=== PATIENT | female | born 1985 | race Caucasian/White ===

== ENCOUNTER 2018-02-24 08:30 | Emergency (ER) | payer OTHER ==
[2018-02-24 08:55] VITALS: BP 125/73
[2018-02-24] MEDS ORDERED: Ketorolac INJ* 30 MG/ML 1 ML VIAL IM ONE (09:34)
--- NOTE | 2018-02-24 09:43 | UC ---
Throat Pain/Nasal Dusty HPI - HPI Summary HPI Summary: 32 yo female with sore throat/BHATTI and bilat otalgia x 2 days no f/c no n/v/d no myalgias - History of Current Complaint Chief Complaint: UCRespiratory Stated Complaint: SORE THROAT,BILATERAL EAR PAIN Time Seen by Provider: 02/24/18 09:28 Hx Obtained From: Patient Hx Last Menstrual Period: unknown Onset/Duration: Gradual Onset Severity: Moderate Pain Intensity: 5 Pain Scale Used: 0-10 Numeric Associated Signs & Symptoms: Positive: Negative - Epiglottits Risk Factors Epiglottis Risk Factors: Negative - Allergies/Home Medications Allergies/Adverse Reactions: Allergies Allergy/AdvReac Type Severity Reaction Status Date / Time No Known Allergies Allergy Verified 05/16/16 17:11 PMH/Surg Hx/FS Hx/Imm Hx - Additional Past Medical History Additional PMH: 32 yo female sore throat/bhatti and bilateral otalgia x 2 days no f/c no n/v/d no SOB Previously Healthy: Yes - Surgical History Surgical History: None - Family History Known Family History: Positive: Hypertension - Social History Alcohol Use: Occasionally Substance Use Type: None Smoking Status (MU): Former Smoker Type: Cigarettes Amount Used/How Often: 5 smokes per day When Did the Patient Quit Smoking/Using Tobacco: 2016 Review of Systems Constitutional: Negative Skin: Negative Eyes: Negative ENT: Sore Throat, Ear Ache Respiratory: Negative Cardiovascular: Negative Gastrointestinal: Negative Genitourinary: Negative Motor: Negative Neurovascular: Negative Musculoskeletal: Negative Neurological: Negative Psychological: Negative Is Patient Immunocompromised?: No All Other Systems Reviewed And Are Negative: Yes Physical Exam Triage Information Reviewed: Yes Appearance: Well-Appearing, No Pain Distress, Well-Nourished Vital Signs: Initial Vital Signs Temp 98.3 F 02/24/18 08:49 Pulse 98 02/24/18 08:49 Resp 16 02/24/18 08:49 BP 125/73 02/24/18 08:49 Pulse Ox 100 02/24/18 08:49 Vital Signs Reviewed: Yes Eyes: Positive: Conjunctiva Clear ENT: Positive: Hearing grossly normal, TMs normal, Tonsillar swelling, Uvula midline. Negative: Nasal congestion, Nasal drainage, Tonsillar exudate, Trismus , Muffled voice, Hoarse voice, Sinus tenderness Neck: Positive: Supple, Nontender, Enlarged Nodes @ - ant cervical Respiratory: Positive: Lungs clear, Normal breath sounds, No respiratory distress, No accessory muscle use Cardiovascular: Positive: RRR, No Murmur Musculoskeletal: Positive: ROM Intact, No Edema Neurological: Positive: Alert Psychological Exam: Normal Skin Exam: Normal Diagnostics - Laboratory Diagnostic Studies Completed/Ordered: strep (-) Throat Pain/Nasal Course/Dx - Differential Dx/Diagnosis Provider Diagnoses: tonsillitis Discharge - Sign-Out/Discharge Documenting (check all that apply): Discharge - Discharge Plan Condition: Stable Disposition: HOME Prescriptions: Amoxicillin PO (*) [Amoxicillin 875 MG (*)] 875 mg PO BID #20 tab Patient Education Materials: Tonsillitis (ED) Referrals: Rja Zuleta MD [Primary Care Provider] - Additional Instructions: rest fluids tylenol or advil recheck in 3-4 days if not better - Billing Disposition and Condition Condition: STABLE Disposition: HOME
== END 2018-02-24 09:57 | disposition home or self-care (01) ==
LOC: UCCORT 08:30
DX: J03.90 Acute tonsillitis, unspecified (principal); F17.210 Nicotine dependence, cigarettes, uncomplicated
CPT/HCPCS: 87651; 99212; G0463

== ENCOUNTER 2018-08-18 10:32 | Emergency (ER) | payer OTHER ==
--- OUTSIDE RECORDS SUMMARY | 2018-08-18 10:51 | XMS REPORT | Continuity of Care Document ---
:1985 External Reference #:[id number] Author Name Ham Garcia N.P. Address [address] [place] [address] [address] [place] [address] Care Team Providers Name Role Phone Raj Zuleta MD Care Team Information Youth Accommodation Support Worker Unavailable Payers Type Date Identification Numbers Payment Provider Subscriber Expires: 2013 Policy Number: [id number] [facility] PayID: [id number] [address] [place] [address] Policy Number: [id number] Formerly [facility] Elizabet Daniels PayID: [id number] [address] [place] [address] Advance Directives Description No Information Available Problems Date Description Provider Status Onset: 02/03/2015 Tobacco user Raj Zuleta M.D. Active Onset: 02/03/2015 Overweight Raj Zuleta M.D. Active Onset: 02/03/2015 Atopic dermatitis Raj Zuleta M.D. Active Onset: 02/03/2015 Psoriasis Raj Zuleta M.D. Active Family History Date Family Member(s) Problem(s) Comments Father 52 Father due to Heart Attack () Mother 54 Mother No Current Problems First Son 9 First Son No Current Problems Second Son 5 Second Son No Current Problems First Daughter 8 First Daughter No Current Problems Second Daughter 3 Second Daughter No Current Problems First Sister 36 First Sister No Current Problems Social History Type Date Description Comments Sex Unknown Marital Status Legal Status: ETOH Use Rarely consumes alcohol Tobacco Use Start: Unknown End: Patient is a former smoker Smoking Status Reviewed: 10/03/17 Patient is a former smoker Allergies, Adverse Reactions, Alerts Description No Known Drug Allergies Medications Medication Date Status Form Strength Qnty SIG Indications Ordering Provider Jjl Active Tablets 25mg 120tabs 1 tab by L20.9 Song, 018 mouth four Ahmad M., times a day M.D. prn, DO Not Drive Or Operate Equipment. Clobetasol Active Cream 0.05% 120gm apply to L40.9 Song, Propionate 015 affected Ahmad M., area twice M.D. a day as needed L20.9 Amoxicillin 05/04/20 Hx Tablets 500mg 30tabs 1 by mouth J02.0 Gilberto Zuletamad 18 - three times M., M.D. 05/13/20 a day 18 Phentermine HCL 05/04/20 Hx Capsules 30mg 30caps 1 by mouth L20.9 Gilberto Zuletamad 18 - every day M., M.D. 07/21/20 18 Ciprofloxacin HCL 08/03/20 Hx Tablets 500mg 20tabs tab one by R10.30 [place] Zuletad 17 - mouth twice M., M.D. 08/13/20 a day 17 Tramadol HCL 08/03/20 Hx Tablets 50mg 45tabs 1 by mouth R10.30 Gilberto Zuletamad 17 - three times M., M.D. 08/03/20 a day 17 Phentermine HCL 08/03/20 Hx Capsules 30mg 30caps 1 by mouth E66.9 Gilberto Zueltamad 17 - every day M., M.D. 04/14/20 18 Amoxicillin 05/06/20 Hx Tablets 500mg 40tabs 2 by mouth H66.93 Raj Zuleta 16 - twice a day M., M.D. 05/16/20 16 Prednisone 05/06/20 Hx Tablets 20mg 8tabs 2 tab by H66.93 Raj Zuleta 16 - mouth daily M., M.D. 05/10/20 4 days 16 Clarithromycin Hx Tablets 500mg Unknown 00 - 01/13/20 15 Flovent HFA Hx Aerosol 110mcg/ Unknown 00 - Act 01/13/20 15 Guaifenesin ac Hx Syrup 100-10m Unknown 00 - g/5ML 01/13/20 15 Desonide Hx Ointment 0.05% NiziolGil M.D. 01/13/20 15 Paroxetine HCL Hx Tablets 40mg NiziolGil M.D. 01/13/20 15 Medications Administered in Office Medication Date Status Form Strength Qnty SIG Indications Ordering Provider Intradermal Administered Injection Anika Zuleta 015 Raj Marshall M.D. Immunizations CPT Code Status Date Vaccine Lot # [id number] Given 04/09/1999 DO Not Use 85493 Given 10/15/1998 DO Not Use 52788 Given 09/04/1998 DO Not Use 84000 Given 09/04/1998 Td 7 Years And Older Vital Signs Date Vital Result Comment 07/21/2018 2:26pm BP Systolic 116 mmHg BP Diastolic 82 mmHg Height 67 inches 5'7" Weight 195.00 lb BMI (Body Mass Index) 30.5 kg/m2 Heart Rate 96 /min Respiratory Rate 16 /min 05/04/2018 1:47pm BP Systolic 110 mmHg BP Diastolic 68 mmHg Height 67 inches 5'7" Weight 186.00 lb BMI (Body Mass Index) 29.1 kg/m2 Heart Rate 88 /min Body Temperature 97.9 F Respiratory Rate 16 /min 02/07/2018 1:16pm BP Systolic 140 mmHg BP Diastolic 82 mmHg Height 67 inches 5'7" Weight 184.00 lb BMI (Body Mass Index) 28.8 kg/m2 Heart Rate 86 /min Respiratory Rate 18 /min 01/02/2018 9:02am BP Systolic 110 mmHg BP Diastolic 70 mmHg Height 67 inches 5'7" Weight 176.00 lb BMI (Body Mass Index) 27.6 kg/m2 Heart Rate 81 /min Respiratory Rate 18 /min 10/03/2017 9:47am BP Systolic 116 mmHg BP Diastolic 82 mmHg Height 67 inches 5'7" Weight 179.00 lb BMI (Body Mass Index) 28.0 kg/m2 Heart Rate 88 /min Respiratory Rate 16 /min 09/05/2017 9:34am BP Systolic 118 mmHg BP Diastolic 72 mmHg Height 67 inches 5'7" Weight 189.00 lb BMI (Body Mass Index) 29.6 kg/m2 Heart Rate 97 /min Respiratory Rate 18 /min 08/03/2017 4:17pm BP Systolic 110 mmHg BP Diastolic 72 mmHg Height 67 inches 5'7" Weight 203.00 lb BMI (Body Mass Index) 31.8 kg/m2 Heart Rate 93 /min Respiratory Rate 16 /min 05/06/2016 3:48pm BP Systolic 118 mmHg BP Diastolic 70 mmHg Height 67 inches 5'7" Weight 196.00 lb BMI (Body Mass Index) 30.7 kg/m2 Heart Rate 76 /min Respiratory Rate 18 /min 02/06/2015 11:46am BP Systolic 132 mmHg BP Diastolic 88 mmHg Height 67 inches 5'7" Weight 200.00 lb BMI (Body Mass Index) 31.3 kg/m2 Heart Rate 85 /min Respiratory Rate 16 /min 02/03/2015 10:22am BP Systolic 126 mmHg BP Diastolic 79 mmHg Height 67 inches 5'7" Weight 200.00 lb BMI (Body Mass Index) 31.3 kg/m2 Heart Rate 82 /min Respiratory Rate 16 /min Results Test Date Facility Test Result H/L Range Note Urine Drug 07/21/2018 [facility] [id number] <pending> [facility] Ethyl Glucuronide <pending> Laboratory test 02/24/2018 [facility] Rapid Strep Negative Negative 1 finding Molecular Comp Metabolic 09/05/2017 [facility] Sodium 136 mmol/L 133-145 2 Panel Potassium 3.8 mmol/L 3.5-5.0 Chloride 103 mmol/L 101-111 Co2 Carbon Dioxide 28 mmol/L 22-32 Anion Gap 5 mmol/L 2-11 Glucose 105 mg/dL High 70-100 Blood Urea Nitrogen 6 mg/dL 6-24 Creatinine 0.81 mg/dL 0.51-0.95 BUN/Creatinine Ratio 7.4 Low 8-20 Calcium 9.3 mg/dL 8.6-10.3 Total Protein 7.0 g/dL 6.4-8.9 Albumin 4.3 g/dL 3.2-5.2 Globulin 2.7 g/dL 2-4 Albumin/Globulin Ratio 1.6 1-3 Total Bilirubin 0.80 mg/dL 0.2-1.0 Alkaline Phosphatase 57 U/L 34-104 Alt 41 U/L 7-52 Ast 22 U/L 13-39 Egfr Non- 81.9 >60 Egfr 105.4 >60 3 Laboratory test 09/05/2017 [facility] TSH (Thyroid 1.27 mcIU/mL 0.34 -5.60 4 finding Stim Horm) Hemoglobin A1c (Glyco HGB) 5.2 % 4.0-5.6 5 Lipid Profile (Trig/Chol/HDL) 09/05/2017 [facility] Triglycerides 79 mg /dL 6 Cholesterol 117 mg/dL 7 HDL Cholesterol 44.5 mg/dL 8 LDL Cholesterol 57 mg/dL 9 CBC Auto Diff 09/05/2017 [facility] White Blood Count 6.2 10^3/uL 3.5-10.8 Red Blood Count 5.09 10^6/uL 4.0-5.4 Hemoglobin 14.6 g/dL 12.0-16.0 Hematocrit 43 % 35-47 Mean Corpuscular Volume 85 fL 80-97 Mean Corpuscular Hemoglobin 29 pg 27-31 Mean Corpuscular HGB Conc 34 g/dL 31-36 Red Cell Distribution Width 14 % 10.5-15 Platelet Count 259 10^3/uL 150-450 Mean Platelet Volume 8 um3 7.4-10.4 Abs Neutrophils 4.1 10^3/uL 1.5-7.7 Abs Lymphocytes 1.8 10^3/uL 1.0-4.8 Abs Monocytes 0.3 10^3/uL 0-0.8 Abs Eosinophils 0 10^3/uL 0-0.6 Abs Basophils 0 10^3/uL 0-0.2 Abs Nucleated RBC 0.01 10^3/uL Granulocyte % 66.2 % 38-83 Lymphocyte % 28.6 % 25-47 Monocyte % 4.3 % 1-9 Eosinophil % 0.5 % 0-6 Basophil % 0.4 % 0-2 Nucleated Red Blood Cells % 0.2 1 Pharmaceutical Development Technician: [id number] 3 Because ethnic data is not always readily available, this report includes an eGFR for both -Americans and non- Americans. The National Kidney Disease Education Program (NKDEP) does not endorse the use of the MDRD equation for patients that are not between the ages of 18 and 70, are , have extremes of body size, muscle mass, or nutritional status, or are non- or non-. According to the National Kidney Foundation, irrespective of diagnosis, the stage of the disease is based on the level of kidney function: Stage Description GFR(mL/min/1.73 m(2)) 1 Kidney damage with normal or decreased GFR 90 2 Kidney damage with mild decrease in GFR 60-89 3 Moderate decrease in GFR 30-59 4 Severe decrease in GFR 15-29 5 Kidney failure <15 (or dialysis) 4 [id number] 5 Therapeutic target for the treatment of diabetes mellitus patients is <7% HBA1C, and in selective patients <6.0%. Please refer to [place] Diabetes Association diabetic care guidelines for further information. 6 Desirable: <150 Borderline High: 150-199 High: 200-499 Very High: >500 7 Desirable: <200 Borderline High: 200-239 High: >239 8 Low: <40 Desirable: 40-60 High: >60 9 Desirable: <100 Near Optimal: 100-129 Borderline High: 130-159 High: 160-189 Very High: >189 Procedures Date Code Description Status 05/06/2016 93485 Tympanometry Completed 05/06/2016 07391 Collection Of Capillary Blood Specimen Completed 02/03/2015 09119 Injection DX/Therapeutic/Prophy Completed Encounters Type Date Location Provider Dx Diagnosis Office Visit 07/21/2018 [place] [facility] Ham Garcia L20.9 Atopic dermatitis, 2:30p N.P. 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 unspecified J30.9 Allergic rhinitis, unspecified E66.9 Obesity, unspecified F17.210 Nicotine dependence, cigarettes, uncomplicated Z71.3 Dietary counseling and surveillance H81.13 Benign paroxysmal vertigo, bilateral L40.9 Psoriasis, unspecified F41.9 Anxiety disorder, unspecified N64.9 Disorder of breast, unspecified Z30.49 Encounter for surveillance of other contraceptives N91.1 Secondary amenorrhea J02.0 Streptococcal pharyngitis Office Visit 02/07/2018 1:15p [place] [facility] Raj Zuleta L20.9 Atopic dermatitisJoanna M.D. unspecified J30.9 Allergic rhinitis, unspecified E66.9 Obesity, unspecified F17.210 Nicotine dependence, cigarettes, uncomplicated Z71.3 Dietary counseling and surveillance H81.13 Benign paroxysmal vertigo, bilateral L40.9 Psoriasis, unspecified F41.9 Anxiety disorder, unspecified N64.9 Disorder of breast, unspecified Z30.49 Encounter for surveillance of other contraceptives N91.1 Secondary amenorrhea Office Visit 01/02/2018 9:00a [place] [facility] Raj Zuleta L20.9 Atopic dermatitisJoanna M.D. 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 Z71.3 Dietary counseling and surveillance Office Visit 09/05/2017 9:30a [place] [facility] Ruslan Chandler F17.210 Nicotine dependence, INFORMATION SYSTEMS SECURITY ANALYST cigarettes, uncomplicated E66.9 Obesity, unspecified H81.13 Benign paroxysmal vertigo, bilateral Z71.3 Dietary counseling and surveillance Office Visit 08/03/2017 4:30p [place] [facility] Ruslan Chandler R10.30 Lower abdominal INFORMATION SYSTEMS SECURITY ANALYST pain, unspecified F17.210 Nicotine dependence, cigarettes, uncomplicated E66.9 Obesity, unspecified Z71.3 Dietary counseling and surveillance Office Visit 05/06/2016 4:00p [place] [facility] Raj Zuleta H81.13 Benign paroxysmal Joanna MarshallD. vertigo, bilateral R42 Dizziness and giddiness R11.0 Nausea J30.9 Allergic rhinitis, unspecified F17.210 Nicotine dependence, cigarettes, uncomplicated L20.9 Atopic dermatitis, unspecified F41.9 Anxiety disorder, unspecified H66.93 Otitis media, unspecified, bilateral Office Visit 02/06/2015 11:45a [place] [facility] Raj ZuletaReinier, 305.1 Tobacco Use M.D. Disorder 691.8 Dermatitis Atopic & Related Conditions Other 696.8 Psoriasis Other V74.1 Screening Examination Pulmonary Tuberculosis 305.1 Tobacco Use Disorder Office Visit 02/03/2015 10:00a [place] [facility] [place] Zuletaleny 691.8 Dermatitis Atopic & M., M.D. Related Conditions Other V70.0 Examination General Medical Routine AT Health Care Facility 696.8 Psoriasis Other V74.1 Screening Examination Pulmonary Tuberculosis 696.8 Psoriasis Other 691.8 Dermatitis Atopic & Related Conditions Other 305.1 Tobacco Use Disorder Plan of Treatment 07/21/2018 - Ham Garcia N.P.L20.9 Atopic dermatitis, unspecifiedNew Medication:Benadryl 25 mg - 1 tab by mouth four times a day prn, DO Not Drive Or Operate Equipment.Comments:SKIN CARE INSTRUCTIONS LOTION OR BABY OIL 2-3 APPLICATION PER DAYUSE MOISTURIZING SOAPAVOID PROLONGED WATER EXPOSUREAVOID USING HOT WATER IN NJYGGEF59.9 Allergic rhinitis, unspecifiedComments:INCREASE PO FLUID USE ANTIHISTAMINE PRN SECOND HAND SMOKING AVOIDANCE SMOKING [id number] Obesity, unspecifiedComments:WT LOSS COUNCELLINGEXERCISEDIET COUNCILLING DUR MRDGVCGS40.210 Nicotine dependence, cigarettes, uncomplicatedComments:SMOKING CESSATION COUNCELLING DISCUSSION RE: CESSATION ABAMWEOO75.13 Benign paroxysmal vertigo, bilateralComments:SAFETY SMOKING WESXAGSPHN76.9 Psoriasis, unspecifiedComments:SKIN CARE INSTRUCTIONS LOTION OR BABY OIL 2-3 APPLICATION PER DAYUSE MOISTURIZING SOAPAVOID PROLONGED WATER EXPOSUREAVOID USING HOT WATER IN WOGSKYA08.9 Anxiety disorder, unspecifiedComments:COUNCELLING AND REASSURANCE RELAXATION TECHNIQUES DISCUSSEDCOUNSELED RE: STRESSORS IN LIFE AVOID ALLENERGY/HIGH CAFFEINE GTYBQLE39.9 Disorder of breast, unspecifiedNew Xrays:Ultrasound Right Breast - Complete, Ordered: 07/21/18Ultrasound Left Breast-Complete, Ordered: Comments:OBSERVEBREAST SUPPORT RSLTBAZW01.49 Encounter for surveillance of other contraceptivesComments:F/U WITH OB/GYNN91.1 Secondary amenorrheaComments: OBSERVEF/U WITH OB/GYNJ02.0 Streptococcal pharyngitisComments:LCXJSMQDV90.899 Other middle or intermediate school principal (current) drug gtlbvlzV32.3 Dietary counseling and surveillanceComments:WT LOSS COUNCELLINGEXERCISEDIET COUNCILLING DUR CHECKED
[2018-08-18 10:59] VITALS: BP 135/82
--- NOTE | 2018-08-18 11:06 | UC ---
Complaint Female HPI - HPI Summary HPI Summary: 33-year-old female who is G5, P4 who feels that she is approximately 7 weeks' based on home test" symptoms" presents with left- sided back pain for 2 days and urinary frequency. She denies any dysuria or hematuria. She's had urinary tract infections in the past but never a kidney stone. She has not had any care up to this point and only self tested at home. She has not had a menstrual period in almost 7 years but recently had an IUD removed. An ice fever, shakes chills or abdominal pain. She did have mild nausea. - History Of Current Complaint Chief Complaint: UCBackPain Stated Complaint: URINARY Time Seen by Provider: 08/18/18 10:55 Hx Obtained From: Patient Hx Last Menstrual Period: "I haven't really had one in a few years..." Pain Intensity: 6 - Allergies/Home Medications Allergies/Adverse Reactions: Allergies Allergy/AdvReac Type Severity Reaction Status Date / Time No Known Allergies Allergy Verified 05/16/16 17:11 Home Medications: Home Medications NK [No Home Medications Reported] 08/18/18 [History Confirmed 08/18/18] PMH/Surg Hx/FS Hx/Imm Hx Previously Healthy: Yes - Surgical History Surgical History: None - Family History Known Family History: Positive: Hypertension - Social History Alcohol Use: Occasionally Substance Use Type: None Smoking Status (MU): Former Smoker Type: Cigarettes Amount Used/How Often: 5 smokes per day When Did the Patient Quit Smoking/Using Tobacco: 2016 Review of Systems Constitutional: Negative Eyes: Negative Respiratory: Negative Cardiovascular: Negative Gastrointestinal: Nausea Genitourinary: Frequency, Other - Left-sided back pain Motor: Negative Neurovascular: Negative Musculoskeletal: Negative All Other Systems Reviewed And Are Negative: Yes Physical Exam Triage Information Reviewed: Yes Appearance: Well-Appearing, No Pain Distress Vital Signs: Initial Vital Signs Temp 98.7 F 08/18/18 10:55 Pulse 102 08/18/18 10:55 Resp 14 08/18/18 10:55 BP 135/82 08/18/18 10:55 Pulse Ox 100 08/18/18 10:55 Vital Signs Reviewed: Yes Eye Exam: Normal ENT Exam: Normal Neck exam: Normal Neck: Positive: Supple, Nontender Respiratory: Positive: Lungs clear Cardiovascular: Positive: RRR Abdomen Description: Positive: Nontender, Soft, Other: - Does not appear gravid. Musculoskeletal: Positive: No Edema, Other: - Mild right-sided CVA tenderness and mild bilateral tenderness to palpation. Neurological Exam: Normal Skin Exam: Normal Diagnostics - Laboratory Diagnostic Studies Completed/Ordered: Urinalysis: Negative. Urine : Positive - Radiology US Xray Interpretation: Positive (See Comments) Radiology Interpretation Completed By: Radiologist - IMPRESSION: EARLY INTRAUTERINE WITH AN ESTIMATED GESTATIONAL AGE OF 5 WEEKS 6 DAYS BY CROWN-RUMP LENGTH. Complaint Female Dx - Course Course Of Treatment: Patient with low back pain and concern for UTI. She also reports being . ultrasound was performed after urine test was positive. She is known to be Rh+. Ultrasound shows a 5 week 6 day intrauterine . Urinalysis is clean. She will follow-up with her OB/ GARMENT EXAMINER at the end of the month as scheduled. Tylenol, massage and range of motion exercises for comfort. - Differential Dx/Diagnosis Differential Diagnosis/HQI/PQRI: , Renal Colic, Ureteral Stone, Urinary Tract Infection Provider Diagnoses: 1. Bilateral low back pain. 2. 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 Return with increased pain, urinary symptoms, fever, new symptoms or other concerns as discussed. Continue your vitamin. Take Tylenol as needed for discomfort. Range of motion exercises, stretching and icing may help. - Billing Disposition and Condition Condition: IMPROVED Disposition: Home - Attestation Statements Document Initiated by Ryan: No
--- NOTE | 2018-08-18 12:11 | RAD ---
INDICATION: , back pain and urinary symptoms. COMPARISON: There are no relevant prior studies available for comparison. TECHNIQUE: Multiple real-time transvaginal images of the pelvis were obtained. FINDINGS: This exam demonstrates an early intrauterine . A pole and yolk sac are visualized. The heart rate was 100 beats per minute. The crown-rump length measured 0.2 cm corresponding to an estimated gestational age of 5 weeks 6 days. The mean sac diameter measured 1.23 cm corresponding to an estimate gestational age of 6 weeks 0 days. The right ovary measured 4.3 x 3.1 x 2.8 cm. The left ovary measured 2.6 x 2.0 x 2.4 cm. There is vascular flow within both ovaries. There is a simple cyst in the right ovary measured 2.0 x 1.5 x 1.6 cm. No free intraperitoneal fluid is seen. IMPRESSION: EARLY INTRAUTERINE WITH AN ESTIMATED GESTATIONAL AGE OF 5 WEEKS 6 DAYS BY CROWN-RUMP LENGTH.
== END 2018-08-18 12:30 | disposition home or self-care (01) ==
LOC: UCCORT 10:32
DX: O26.891 Other specified pregnancy related conditions, first trimester (principal); M54.5 Low back pain; Z3A.01 Less than 8 weeks gestation of pregnancy; Z87.891 Personal history of nicotine dependence
CPT/HCPCS: 76801; 81003; 84702; 99211; G0463

== ENCOUNTER 2020-03-06 09:25 | Emergency (ER) | payer MEDICAID, OTHER ==
[2020-03-06 10:02] VITALS: BP 125/71
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
== END 2020-03-06 10:53 | disposition home or self-care (01) ==
LOC: UCCORT 09:25
DX: S83.91XA Sprain of unspecified site of right knee, initial encounter (principal); V28.0XXA Motorcycle driver injured in noncollision transport accident in nontraffic accident, initial encounter; Y93.89 Activity, other specified; Y92.096 Garden or yard of other non-institutional residence as the place of occurrence of the external cause; Z87.891 Personal history of nicotine dependence
CPT/HCPCS: 99212; G0463